=== PATIENT | male | born 1970 | race Caucasian/White ===

== ENCOUNTER 2018-08-05 10:03 | Day surgery (SDC) | payer MEDICAID ==
[2018-08-04 12:20] LABS: Basophils # (auto) 0.1 uL; Basophils % (auto) 0.8 % (0.0-2.0); Eosinophils # (auto) 0.1 uL; Eosinophils % (auto) 1.9 % (0.0-7.0); Hematocrit 46.4 % (41.0-53.0); Hemoglobin 15.2 g/dL (13.5-17.5); Lymphocytes # (auto) 1.6 uL; Lymphocytes % (auto) 22.2 % (10.0-50.0); Mean Corpuscular Hemoglobin 30.8 pg (28.0-32.0); Mean Corpuscular Hgb Conc. 32.7 g/dL (32.0-36.0); Mean Corpuscular Volume 94.2 fL (80.0-100.0); Monocytes # (auto) 0.6 uL; Monocytes % (auto) 8.8 % (0.0-12.0); Neutrophils # (auto) 4.7 uL; Neutrophils % (auto) 66.3 % (37.0-80.0); Nucleated Red Blood Cells % 0.1 %; Platelet Count (auto) 361 10^3/uL (140-450); Red Blood Cells 4.93 10^6/uL (4.5-5.90); Red Cell Distribution Width 13.1 % (11.8-14.3)
[2018-08-04 12:38] LABS: INR 1.01 (0.9-1.15); Partial Thromboplastin Time 28.5 sec (23.78-33.04); Prothrombin Time 10.8 sec (9.27-12.13)
[2018-08-04 12:43] LABS: Urine Bacteria NONE SEEN /hpf (None Seen); Urine Blood 1+ /uL (Negative); Urine Specific Gravity 1.008 (1.001-1.035); Urine WBC <1 /hpf (0 - 3)
[2018-08-04 13:40] LABS: Albumin 3.6 g/dL (3.4-5.0); Calcium 8.3 mg/dL (8.5-10.1); Potassium 3.9 mmol/L (3.5-5.1)
[2018-08-04 13:45] LABS: BUN/Creatinine Ratio 9.1; Bilirubin, Total 0.8 mg/dL (0.2-1.0); Total Protein 7.4 g/dL (6.4-8.2)
[~2018-08-05] VITALS: Ht 182.9 cm; Wt 90.7 kg
[~2018-08-05 10:03] MED LIST: AMLO5TAB13 PO; LOSA25TA40 PO; OMEP20TA PO
[2018-08-05] MEDS ORDERED: ceFAZolin 1GM/50ML 50 ML IV ONE (10:38)
[2018-08-05] MEDS ORDERED: ONDANSETRON HCL 4 MG/2 ML VIAL ONE (13:14)
[2018-08-05] MEDS ORDERED: PROPOFOL 10 MG/ML 20 ML IV ONE ×2 (13:14→13:31)
[2018-08-05] MEDS ORDERED: fentaNYL CITRATE 100 MCG/2 ML VL ONE ×2 (13:14→13:44)
[2018-08-05] MEDS ORDERED: SODIUM CHLORIDE LOCK 0 ML ONE (13:14)
[2018-08-05] MEDS ORDERED: ONDANSETRON HCL 4 MG/2 ML VIAL IV ONE (13:30)
[2018-08-05] MEDS ORDERED: NALOXONE HCL 0.4 MG/ML VIAL IV PRN (13:30)
[2018-08-05] MEDS ORDERED: HYDROmorphone HCL 2 MG/ML VL IV PRN ×2 (13:30)
[2018-08-05] MEDS ORDERED: METOCLOPRAMIDE HCL 5MG/ml INJ 2ml VIAL ONE (13:31)
[2018-08-05] MEDS ORDERED: MIDAZOLAM HCL 1MG/1ML-2 ML VIAL ONE (13:31)
[2018-08-05] MEDS ORDERED: LIDOCAINE 1% INJ PF 5ML AMP ONE (13:32)
[2018-08-05] MEDS ORDERED: SUCCINYLCHOLINE CHLORIDE 20 MG/ML 10ML VIAL IV ONE (13:32)
[2018-08-05] MEDS ORDERED: BUPIVACAINE 0.75% INJ 10ML MPV SDV IJ ONE (13:33)
[2018-08-05] MEDS ORDERED: NEOMYCIN-BACITRACIN-POLYM 15GM TOP OINT TOP ONE (13:33)
[2018-08-05] MEDS ORDERED: methylPREDNISolone ACETATE 80 MG/ML VL ONE (13:33)
[2018-08-05] MEDS ORDERED: STERILE WATER 10 ML ONE (13:56)
[2018-08-05] MEDS ORDERED: ePHEDrine SULFATE 50 MG/ML AMP ONE (13:56)
[2018-08-05] MEDS ORDERED: KETOROLAC TROMETH 30 MG/ML 1ML VIAL ONE (14:00)
[2018-08-05 15:30] VITALS: BP 141/86
== END 2018-08-05 15:30 | disposition home or self-care (01) ==
LOC: SUR 10:03
PROVIDERS: ATTEND Podiatrist Foot & Ankle Surgery
DX: M89.8X7 Other specified disorders of bone, ankle and foot (principal); M24.572 Contracture, left ankle; I10 Essential (primary) hypertension; G47.33 Obstructive sleep apnea (adult) (pediatric); E66.9 Obesity, unspecified; Z98.84 Bariatric surgery status; Z79.899 Other long term (current) drug therapy; Z83.3 Family history of diabetes mellitus; Z82.3 Family history of stroke
CPT/HCPCS: 27685; 27687; J2765; J3010; V2790; 36415; 80053; 81001; 85025; 85610; 85730; J0330; J0690; J1885; J2250; J2405; J2704; J3490

== ENCOUNTER 2018-08-05 18:17 | Emergency (ER) | payer MEDICAID ==
[~2018-08-05] VITALS: Ht 182.9 cm; Wt 90.7 kg
[2018-08-05] MEDS ORDERED: SODIUM CHLORIDE 0.9% 1,000 ML IVB ONE (19:03)
[2018-08-05 20:09] VITALS: BP 133/78
[2018-08-05 20:13] LABS: Basophils # (auto) 0 uL; Basophils % (auto) 0.1 % (0.0-2.0); Eosinophils # (auto) 0 uL; Eosinophils % (auto) 0.1 % (0.0-7.0); Hematocrit 44.7 % (41.0-53.0); Hemoglobin 14.6 g/dL (13.5-17.5); Lymphocytes # (auto) 0.6 uL; Lymphocytes % (auto) 3.4 % (10.0-50.0); Mean Corpuscular Hemoglobin 30.9 pg (28.0-32.0); Mean Corpuscular Hgb Conc. 32.7 g/dL (32.0-36.0); Mean Corpuscular Volume 94.5 fL (80.0-100.0); Monocytes # (auto) 1.4 uL; Monocytes % (auto) 7.5 % (0.0-12.0); Neutrophils # (auto) 16.2 uL; Neutrophils % (auto) 88.9 % (37.0-80.0); Platelet Count (auto) 349 10^3/uL (140-450); Red Blood Cells 4.74 10^6/uL (4.5-5.90); Red Cell Distribution Width 12.9 % (11.8-14.3); White Blood Cell 18.3 10^3/uL (4.4-10.8)
[2018-08-05 20:20] LABS: Alanine Aminotransferase 66 U/L (16-61); Albumin 3.7 g/dL (3.4-5.0); Anion Gap 12 (5-15); Aspartate Aminotransferase 150 U/L (15-37); BUN/Creatinine Ratio 7.3; Blood Alcohol < 3.0 mg/dL (0-5); Blood Urea Nitrogen 11 mg/dL (7-18); Calcium 7.8 mg/dL (8.5-10.1); Carbon Dioxide 24 mmol/L (21-32); Chloride 98 mmol/L (98-107); GFR African American 64 mL/min; GFR Non-African American 53 mL/min; Glucose 114 mg/dL (74-106); INR 1.04 (0.9-1.15); Magnesium 2.1 mg/dL (1.6-2.6); Partial Thromboplastin Time 25.2 sec (23.78-33.04); Potassium 3.3 mmol/L (3.5-5.1); Prothrombin Time 11.1 sec (9.27-12.13); Sodium 134 mmol/L (136-145)
[2018-08-05 20:24] LABS: Salicylate < 1.7 mg/dL (2.8-20.0)
[2018-08-05 20:25] LABS: Alkaline Phosphatase 102 U/L (45-117); Bilirubin, Total 0.7 mg/dL (0.2-1.0); Total Protein 7.2 g/dL (6.4-8.2)
[2018-08-05 20:26] LABS: Acetaminophen < 2.0 ug/mL (10-30)
== END 2018-08-05 20:57 | disposition left against medical advice (07) ==
LOC: ER 18:17 → EDBD 18:17 → ER 20:57
DX: R41.82 Altered mental status, unspecified (principal); Z53.21 Procedure and treatment not carried out due to patient leaving prior to being seen by health care provider
CPT/HCPCS: 36415; 71045; 80053; 80320; 80329; 82962; 83735; 84484; 85025; 85610; 85730; 93005

== ENCOUNTER → 2018-12-02 | Day surgery (SDC) | payer MEDICAID ==
[2018-12-01 14:50] LABS: Urine WBC None Seen /hpf (0 - 3)
[2018-12-01 15:10] LABS: Basophils # (auto) 0 uL; Basophils % (auto) 0.5 % (0.0-2.0); Eosinophils # (auto) 0.1 uL; Eosinophils % (auto) 2.1 % (0.0-7.0); Lymphocytes # (auto) 1.2 uL; Lymphocytes % (auto) 18.2 % (10.0-50.0); Mean Corpuscular Hemoglobin 30.9 pg (28.0-32.0); Mean Corpuscular Hgb Conc. 33.2 g/dL (32.0-36.0); Monocytes # (auto) 0.6 uL; Monocytes % (auto) 8.8 % (0.0-12.0); Neutrophils # (auto) 4.7 uL; Neutrophils % (auto) 70.4 % (37.0-80.0); Platelet Count (auto) 266 10^3/uL (140-450); Red Cell Distribution Width 13.9 % (11.8-14.3); White Blood Cell 6.6 10^3/uL (4.4-10.8)
[2018-12-01 15:17] LABS: Potassium 3.4 mmol/L (3.5-5.1)
[2018-12-01 15:23] LABS: Albumin 3.4 g/dL (3.4-5.0); Bilirubin, Total 0.4 mg/dL (0.2-1.0); Total Protein 6.8 g/dL (6.4-8.2)
[2018-12-01 15:43] LABS: Partial Thromboplastin Time 29.7 sec (23.78-33.04); Prothrombin Time 10.7 sec (9.27-12.13)
[2018-12-01 16:14] LABS: Urine Bacteria NONE SEEN /hpf (None Seen); Urine Blood TRACE /uL (Negative); Urine Specific Gravity 1.012 (1.001-1.035)
[~2018-12-02] VITALS: Ht 182.9 cm; Wt 95.3 kg
[~2018-12-02] MED LIST changes: +AMLO10TA12 PO; -AMLO5TAB13 PO; +BUPIVACAINE 0.75% INJ 10ML MPV SDV IJ ONE; +HYDROmorphone HCL 2 MG/ML VL IV PRN; +LIDOCAINE 1% INJ PF 5ML AMP ONE; +LOSA100T33 PO; -LOSA25TA40 PO; +METO-158 PO; +METOCLOPRAMIDE HCL 5MG/ml INJ 2ml VIAL ONE; +MIDAZOLAM HCL 1MG/1ML-2 ML VIAL ONE; +NALOXONE HCL 0.4 MG/ML VIAL IV PRN; -OMEP20TA PO; +ONDANSETRON HCL 4 MG/2 ML VIAL IV ONE; +PROPOFOL 10 MG/ML 20 ML IV ONE; +ceFAZolin 1GM/50ML 50 ML IV ONE; +fentaNYL CITRATE 100 MCG/2 ML VL ONE
[2018-12-02 16:00] VITALS: BP 138/93
== END | disposition home or self-care (01) ==
LOC: SUR 11:30
PROVIDERS: ATTEND Podiatrist Foot & Ankle Surgery
DX: M62.471 Contracture of muscle, right ankle and foot (principal); L97.518 Non-pressure chronic ulcer of other part of right foot with other specified severity; M21.6X9 Other acquired deformities of unspecified foot; E66.9 Obesity, unspecified; G47.33 Obstructive sleep apnea (adult) (pediatric); I10 Essential (primary) hypertension; Z98.84 Bariatric surgery status; Z98.890 Other specified postprocedural states
CPT/HCPCS: 27685; J2765; J3010; V2790; 36415; 80053; 81001; 85025; 85610; 85730; J0690; J2250; J2704; J3490

== ENCOUNTER 2019-05-05 09:07 | Day surgery (SDC) | payer MEDICAID ==
[2019-05-04 14:33] LABS: Urine Bacteria NONE SEEN /hpf (None Seen); Urine Blood 1+ /uL (Negative); Urine Specific Gravity 1.005 (1.001-1.035); Urine WBC <1 /hpf (0 - 3)
[2019-05-04 14:43] LABS: Partial Thromboplastin Time 27.6 sec (23.64-32.05)
[2019-05-04 14:48] LABS: Basophils # (auto) 0.1 uL; Basophils % (auto) 1.1 % (0.0-2.0); Eosinophils # (auto) 0.2 uL; Eosinophils % (auto) 2.8 % (0.0-7.0); Hematocrit 40.1 % (41.0-53.0); Hemoglobin 13.4 g/dL (13.5-17.5); Lymphocytes # (auto) 1.6 uL; Lymphocytes % (auto) 26.9 % (10.0-50.0); Mean Corpuscular Hemoglobin 30.5 pg (28.0-32.0); Mean Corpuscular Hgb Conc. 33.4 g/dL (32.0-36.0); Mean Corpuscular Volume 91.6 fL (80.0-100.0); Monocytes # (auto) 0.6 uL; Monocytes % (auto) 10.1 % (0.0-12.0); Neutrophils # (auto) 3.6 uL; Neutrophils % (auto) 59.1 % (37.0-80.0); Nucleated Red Blood Cells % 0.1 %; Platelet Count (auto) 324 10^3/uL (140-450); Red Blood Cells 4.38 10^6/uL (4.5-5.90); Red Cell Distribution Width 14.2 % (11.8-14.3); White Blood Cell 6.1 10^3/uL (4.4-10.8)
[2019-05-04 15:01] LABS: Albumin 3.6 g/dL (3.4-5.0); Calcium 8.4 mg/dL (8.5-10.1); Potassium 3.8 mmol/L (3.5-5.1)
[2019-05-04 15:03] LABS: BUN/Creatinine Ratio 7.3
[2019-05-04 15:06] LABS: Bilirubin, Total 0.3 mg/dL (0.2-1.0); Total Protein 7.2 g/dL (6.4-8.2)
[~2019-05-05] VITALS: Ht 182.9 cm; Wt 97.5 kg
[~2019-05-05 09:07] MED LIST changes: -AMLO10TA12 PO; +AMLO10TA13 PO; -BUPIVACAINE 0.75% INJ 10ML MPV SDV IJ ONE; -HYDROmorphone HCL 2 MG/ML VL IV PRN; -LIDOCAINE 1% INJ PF 5ML AMP ONE; -METOCLOPRAMIDE HCL 5MG/ml INJ 2ml VIAL ONE; -MIDAZOLAM HCL 1MG/1ML-2 ML VIAL ONE; -NALOXONE HCL 0.4 MG/ML VIAL IV PRN; -ONDANSETRON HCL 4 MG/2 ML VIAL IV ONE; -PROPOFOL 10 MG/ML 20 ML IV ONE; -ceFAZolin 1GM/50ML 50 ML IV ONE; -fentaNYL CITRATE 100 MCG/2 ML VL ONE
[2019-05-05] MEDS ORDERED: ceFAZolin 1GM/50ML 50 ML IV ONE (09:34)
[2019-05-05] MEDS ORDERED: fentaNYL CITRATE 100 MCG/2 ML VL ONE (10:42)
[2019-05-05] MEDS ORDERED: MIDAZOLAM HCL 1MG/1ML-2 ML VIAL ONE (10:42)
[2019-05-05] MEDS ORDERED: fentaNYL CITRATE 100 MCG/2 ML VL IV ONE (10:52)
[2019-05-05] MEDS ORDERED: MIDAZOLAM HCL 1MG/1ML-2 ML VIAL IV ONE (10:52)
[2019-05-05] MEDS ORDERED: PROPOFOL 10 MG/ML 20 ML IV ONE (10:52)
[2019-05-05 11:41] VITALS: BP 128/89
[2019-05-06] MEDS: ROPIVACAINE 0.5% (5MG/ML) 20ML AMPULE IJ ONE (13:31)
== END 2019-05-05 11:54 | disposition home or self-care (01) ==
LOC: SUR 09:07
PROVIDERS: ATTEND Podiatrist Foot & Ankle Surgery
DX: M24.575 Contracture, left foot (principal); E66.9 Obesity, unspecified; I10 Essential (primary) hypertension; Z98.84 Bariatric surgery status; Z79.899 Other long term (current) drug therapy; Z68.29 Body mass index [BMI] 29.0-29.9, adult
CPT/HCPCS: 27685; 36415; 80053; 81001; 85025; 85610; 85730; J0690; J2250; J2704; J2795; J3010

== ENCOUNTER 2019-08-11 09:54 | Inpatient (IN) | payer MEDICAID ==
[2019-08-10 14:04] LABS: Basophils # (auto) 0.1 uL; Basophils % (auto) 0.9 % (0.0-2.0); Eosinophils # (auto) 0.1 uL; Eosinophils % (auto) 1.1 % (0.0-7.0); Hematocrit 42.3 % (41.0-53.0); Hemoglobin 13.9 g/dL (13.5-17.5); Lymphocytes # (auto) 1.3 uL; Lymphocytes % (auto) 19.3 % (10.0-50.0); Mean Corpuscular Hgb Conc. 32.8 g/dL (32.0-36.0); Mean Corpuscular Volume 91.3 fL (80.0-100.0); Monocytes # (auto) 0.7 uL; Monocytes % (auto) 10.4 % (0.0-12.0); Neutrophils # (auto) 4.7 uL; Neutrophils % (auto) 68.3 % (37.0-80.0); Nucleated Red Blood Cells % 0.1 %; Platelet Count (auto) 339 10^3/uL (140-450); Red Blood Cells 4.63 10^6/uL (4.5-5.90); Red Cell Distribution Width 14.1 % (11.8-14.3); White Blood Cell 6.9 10^3/uL (4.4-10.8)
[2019-08-10 14:12] LABS: Urine Bacteria NONE SEEN /hpf (None Seen); Urine Blood 2+ /uL (Negative); Urine Specific Gravity 1.004 (1.001-1.035); Urine WBC <1 /hpf (0 - 3)
[2019-08-10 14:21] LABS: Albumin 3.2 g/dL (3.4-5.0); BUN/Creatinine Ratio 6.8; Calcium 8.1 mg/dL (8.5-10.1); Partial Thromboplastin Time 29.1 sec (23.64-32.05); Potassium 3.6 mmol/L (3.5-5.1)
[2019-08-10 14:24] LABS: Bilirubin, Total 0.5 mg/dL (0.2-1.0); Total Protein 7.3 g/dL (6.4-8.2)
[~2019-08-11] VITALS: Ht 182.9 cm; Wt 96.6 kg
[2019-08-11] MEDS ORDERED: ceFAZolin 1GM/50ML 50 ML IV ONE (10:04)
[2019-08-11] MEDS: ROPIVACAINE 0.5% (5MG/ML) 20ML AMPULE IJ ONE ×2 (10:39→11:05)
[2019-08-11] MEDS ORDERED: ceFAZolin 1GM VL ONE (11:08)
[2019-08-11] MEDS ORDERED: fentaNYL CITRATE 100 MCG/2 ML VL IV ONE (11:27)
[2019-08-11] MEDS ORDERED: hydrALAZINE HCL 20 MG/ML VL IV PRN (11:30)
[2019-08-11] MEDS ORDERED: ONDANSETRON HCL 4 MG/2 ML VIAL IV PRN ×2 (11:30→14:00)
[2019-08-11] MEDS ORDERED: ePHEDrine SULFATE 50 MG/ML AMP IV PRN (11:30)
[2019-08-11] MEDS: fentaNYL CITRATE 100 MCG/2 ML VL IV PRN ×2 (12:08→12:45)
[2019-08-11] MEDS ORDERED: VANCOMYCIN PER PHARMACY 0 MG IV SCH (14:00)
[2019-08-11] MEDS ORDERED: cefTRIAXone 1GM/50ML D5W 50 ML IV ONE (14:00)
[2019-08-11] MEDS ORDERED: MORPHINE SULF INJ 2 MG/ML SYRINGE 1ML ONE (14:05)
[2019-08-11 17:00] VITALS: BP 139/88
--- NOTE | 2019-08-11 17:09 | NUR ---
RECEIVED REPORT AND ASSUMED CARE OF PT. PT ARRIVED UNIT VIA GURNEY. A/OX4. DENIED S/S ACUTE DISTRESS. DRESSING ON RIGHT LEG C/D/I. UPDATE PT WITH POC. ORIENTED PT TO ROOM AND MADE COMFORTABLE IN BED. BED AT LOWEST POSITION. CALL LIGHT AND BELONGINGS WITHIN REACH. WILL CONT TO MONITOR.
[2019-08-11] MEDS: SODIUM CHLORIDE 0.9% 1,000 ML IV SCH (17:45)
[2019-08-11] MEDS: MORPHINE SULF INJ 2 MG/ML SYRINGE 1ML IV PRN ×2 (17:50→21:52)
[2019-08-11] MEDS: VANCOMYCIN 1,500 MG in D5W 5% 250 ML IV SCH (17:54)
--- NOTE | 2019-08-11 19:15 | NUR ---
PT RESTING IN BED. NO S/S ACUTE DISTRESS NOTED. ENDORSED CARE TO NIGHT NURSE.
[2019-08-11] MEDS: HYDROcodone-ACET 5/325MG TAB PO PRN (19:29)
[2019-08-11 21:00] VITALS: BP 125/87
[2019-08-11] MEDS: METOPROLOL TARTRATE 25 MG TAB PO SCH (21:52)
[2019-08-12] MEDS: SODIUM CHLORIDE 0.9% 1,000 ML IV SCH (04:19)
[2019-08-12 04:30] VITALS: BP 128/81
[2019-08-12] MEDS: MORPHINE SULF INJ 2 MG/ML SYRINGE 1ML IV PRN ×4 (04:32→20:02)
[2019-08-12] MEDS: VANCOMYCIN 1,500 MG in D5W 5% 250 ML IV SCH ×2 (05:40→17:45)
[2019-08-12] MEDS: HYDROcodone-ACET 5/325MG TAB PO PRN ×3 (06:00→18:31)
[2019-08-12 07:11] LABS: Basophils # (auto) 0 uL; Basophils % (auto) 0.4 % (0.0-2.0); Eosinophils # (auto) 0.1 uL; Hematocrit 36.7 % (41.0-53.0); Hemoglobin 12.2 g/dL (13.5-17.5); Lymphocytes # (auto) 1.4 uL; Lymphocytes % (auto) 19.6 % (10.0-50.0); Mean Corpuscular Hemoglobin 30.4 pg (28.0-32.0); Mean Corpuscular Hgb Conc. 33.4 g/dL (32.0-36.0); Mean Corpuscular Volume 90.9 fL (80.0-100.0); Monocytes % (auto) 13.1 % (0.0-12.0); Neutrophils # (auto) 4.8 uL; Neutrophils % (auto) 65.9 % (37.0-80.0); Platelet Count (auto) 271 10^3/uL (140-450); Red Blood Cells 4.03 10^6/uL (4.5-5.90); Red Cell Distribution Width 13.6 % (11.8-14.3); White Blood Cell 7.3 10^3/uL (4.4-10.8)
[2019-08-12 07:37] LABS: Calcium 7.8 mg/dL (8.5-10.1); Potassium 3.4 mmol/L (3.5-5.1)
[2019-08-12 07:39] LABS: BUN/Creatinine Ratio 7.4
[2019-08-12 08:24] VITALS: BP 135/77
[2019-08-12] MEDS: cefTRIAXone 1GM/50ML D5W 50 ML IV SCH (09:16)
[2019-08-12] MEDS: LOSARTAN POTASSIUM 50 MG TAB PO SCH (10:27)
[2019-08-12] MEDS: METOPROLOL TARTRATE 25 MG TAB PO SCH ×2 (10:28→21:56)
[2019-08-12] MEDS: amLODIPine BESYLATE 5 MG TAB PO SCH (10:28)
[2019-08-12 12:26] VITALS: BP 147/88
[2019-08-12] MEDS ORDERED: LIDOCAINE 1% (LOCAL ANESTH.) PF 5ml SDV ID ONE (13:45)
--- NOTE | 2019-08-12 13:45 | NUR ---
PICC line placement Patient/Patient significant other educated on need for PICC line placement. All risks and benefits explained and all questions and concerns addressed prior to procedure. Noted past medical history and allergies with no contraindications. INR and Plt counts within acceptable range. 4 fr PICC line inserted via right brachial vein using [employer] US and Tip Location System. Sterile technique with maximum barrier precautions utilized. Blood return obtained from the lumen and flushed easily with NS using proper technique. PICC secured with Stat-lock; biodisc and occlusive dressing applied. Stat portable chest x-ray obtained for PICC tip placement. *Baseline Arm Circumference 35 cm. Internal length 44 cm. External length 0 cm. PICC lot #[id number]
--- NOTE | 2019-08-12 13:59 | NUR ---
Okay to use PICC line Xray completed and reviewed. Okay to use PICC line.
--- NOTE | 2019-08-12 16:16 | NUR ---
D/C Planning Per consult for [facility] for IV antibiotics for Rocephin 1 GM daily for 4 weeks Vancomycin 1.5gm daily for 2 weeks. Dosing per pharmacy. Commissioner Of Officials Ingrid will be working on IV Abx. Contact [employer] [facility] Ph:) ) faxed medical records. [facility]ipp[facility] Pt has been accepted and service to start upon d/c . [facility] and case management specialist will follow up on the infusion. Addendum: 08/12/19 at 1621 by LITZY DRUMMOND Amended: Links added.
--- NOTE | 2019-08-12 16:18 | NUR ---
Contact [facility] Ph:) fax:) faxed medical records requesting authorization. Per Emma from [facility] authorization is [id number].
[2019-08-12 16:26] VITALS: BP 136/81
--- NOTE | 2019-08-12 16:46 | NUR ---
I faxed home IV ATB order to [facility].
--- NOTE | 2019-08-12 19:30 | NUR ---
OPENING NOTE RECEIVED REPORT FROM DAY SHIFT RN. PATIENT SITTING UP IN BED WATCHING TV. FIANCE AT BEDSIDE. PATIENT IS A/O X4, AMBULATORY. NO S/S OF DISTRESS OR SOB. PATIENT CO OF PAIN WILL MEDICATE PRESCRIBED. UPDATED PATIENT ON POC, VERBALIZED UNDERSTANDING. BED IN LOWEST LOCKED POSITION, CALL LIGHT WITHIN REACH. WILL CONTINUE TO MONITOR PATIENT Q1H AND PRN.
[2019-08-12 22:15] VITALS: BP 138/82
[2019-08-13] MEDS: MORPHINE SULF INJ 2 MG/ML SYRINGE 1ML IV PRN ×2 (00:53→06:14)
[2019-08-13] MEDS: SODIUM CHLOR 0.9% PF (SALINE LOCK) 10ML VIAL/SYR IV SCH ×2 (01:42→10:55)
[2019-08-13 05:08] VITALS: BP 135/79
[2019-08-13 05:35] LABS: BUN/Creatinine Ratio 9.5; Calcium 7.8 mg/dL (8.5-10.1); Potassium 3.4 mmol/L (3.5-5.1)
[2019-08-13] MEDS: VANCOMYCIN 1,500 MG in D5W 5% 250 ML IV SCH (05:57)
--- NOTE | 2019-08-13 07:30 | NUR ---
Opening Note Received report from production supervisor off shift RN. Patient is awake, alert and oriented x4. No signs or symptoms of distress noted at this time. Patient has dressing to right foot, clean dry and intact. Patient is on room air, respirations even and unlabored. Reviewed plan of care with patient, patient verbalized understanding. Bed in low and locked position, call light within reach. Will continue to monitor Q1 hour and PRN.
[2019-08-13] MEDS: LOSARTAN POTASSIUM 50 MG TAB PO SCH (08:44)
[2019-08-13] MEDS: METOPROLOL TARTRATE 25 MG TAB PO SCH (08:45)
--- NOTE | 2019-08-13 08:45 | NUR ---
Pain Patient complains of pain to right foot 8/10. Will medicate with PRN pain medications. Will continue to monitor Q1 hour and PRN.
[2019-08-13] MEDS: cefTRIAXone 1GM/50ML D5W 50 ML IV SCH (08:46)
[2019-08-13] MEDS: amLODIPine BESYLATE 5 MG TAB PO SCH (08:46)
[2019-08-13] MEDS: HYDROcodone-ACET 5/325MG TAB PO PRN (08:48)
[2019-08-13 09:00] VITALS: BP 136/90
--- NOTE | 2019-08-13 11:00 | NUR ---
assessment Patient is a 48 year old male who is alert and oriented. Patients cognitive abilities are intact. Prior to admission patient lived home with family and functioned independently. Patient informed me he is able to care for his own ADLs. Per patient he will return home to his prior living arrangements post discharge and family will transport him home. Patient informed me he has a cane for home use. Patients PCP is Dr Boyle. Patient has an order for home IV ABX. Patient informed me he has someone home who is teachable. Patient feels safe returning home on discharge with IV ABX. I informed patient he has a right to speak to a rn social services regarding all care. I informed patient he has a right to participate in any and all discharge planning. Patient does not have a POA and advanced directive. I have offered patient information on POA and advanced directives. I informed the patient the advantages and benefits of having an Advanced Directive. Patient verbalized understanding and agreed to discharge plan. Addendum: 08/13/19 at 1601 by Avani PIZANO Amended: Links added.
--- NOTE | 2019-08-13 12:20 | NUR ---
Spoke with Pauline from [facility] Regarding home health and IV antibiotics. Waiting for confirmation of arrangements to discharge patient. Will continue to monitor Q1 hour and PRN.
[2019-08-13] MEDS ORDERED: POTASSIUM CHL 20 Meq TABLET PO ONE (12:30)
[2019-08-13 12:51] VITALS: BP 136/90
--- NOTE | 2019-08-13 13:58 | NUR ---
PT CAN GO HOME. Per Marjorie, meds will be delivered between 1900 and 2300 hrs and she will be calling pt.
--- NOTE | 2019-08-13 14:11 | NUR ---
DISCHARGE Discharge instructions given as ordered. Encourage to follow up with PMD as instructed. All questions and concerns addressed. Patient verbalized understanding. Medication reconciliation form completed and copy given to patient. patient to [facility] and [facility] for IV antibiotics. Patient taken down to private vehicle via wheelchair accompanied by family and staff. No signs or symptoms of distress noted at this time.
--- NOTE | 2019-08-13 14:34 | NUR ---
Followed up call to Ruth informed Pippa Pt will be discharging today.
== END 2019-08-13 14:11 | disposition home or self-care (01) | DRG 314 ==
LOC: SUR 09:54 → WEST WING 16:30
PROVIDERS: ADMIT Podiatrist Foot & Ankle Surgery; ATTEND Internal Medicine
PROC: 0SBM0ZZ Excision of Right Metatarsal-Phalangeal Joint, Open Approach (ICD-10-PCS; 2019-08-11)
PROC: 0QBQ0ZZ Excision of Right Toe Phalanx, Open Approach (ICD-10-PCS; principal; 2019-08-11 10:53)
PROC: 02HV33Z Insertion of Infusion Device into Superior Vena Cava, Percutaneous Approach (ICD-10-PCS; 2019-08-12)
DX: M86.8X7 Other osteomyelitis, ankle and foot (principal); L97.509 Non-pressure chronic ulcer of other part of unspecified foot with unspecified severity; I10 Essential (primary) hypertension; Z98.84 Bariatric surgery status
CPT/HCPCS: 36415; 36569; 71045; 80048; 80053; 80202; 81001; 85025; 85610; 85730; G0378; J0690; J0696; J7060